=== PATIENT | male | born 1985 | race Caucasian/White ===

== ENCOUNTER → 2017-01-29 | Outpatient (CLI) | payer MEDICAID, OTHER ==
[2017-01-29 11:23] LABS: CH 28.4; CHCM 33.6; HCT 43.8 % (39.0-53.0); HDW 2.73; HGB 14.9 gm/dL (13.0-17.5); MCH 28.8 pg (25.0-35.0); MCV 84.8 fL (80.0-100.0); Mean Platelet Volume 6.6; RBC 5.17 m/uL (4.30-5.90); RDW 12.8 % (11.5-15.5); WBC 5.6 k/uL (3.8-10.6)
[2017-01-29 12:06] LABS: ALT 29 U/L (21-72); AST 29 U/L (17-59); Alkaline Phosphatase 75 U/L (38-126); Anion Gap 8 mmol/L; Blood Urea Nitrogen 11 mg/dL (9-20); Calcium 9.1 mg/dL (8.4-10.2); Carbon Dioxide 27 mmol/L (22-30); Chloride 110 mmol/L (98-107); Glucose 90 mg/dL (74-99); Non-African American GFR(MDRD) >60 (>60 ml/min/1.73 sqM); Potassium 4.6 mmol/L (3.5-5.1); Sodium 145 mmol/L (137-145); Total Bilirubin 0.3 mg/dL (0.2-1.3); Total Protein 7.4 g/dL (6.3-8.2)
[2017-01-29 12:44] LABS: INR 1.1 (<1.2); Partial Thromboplastin Time 44.8 sec (22.0-30.0); Prothrombin Time 11.1 sec (9.0-12.0)
== END | disposition home or self-care (01) ==
LOC: LABWHC1 10:59
PROVIDERS: ATTEND Internal Medicine Hematology & Oncology
DX: D66 Hereditary factor VIII deficiency (principal)
CPT/HCPCS: 36415; 80053; 85027; 85610; 85730

== ENCOUNTER → 2018-01-09 | Outpatient (CLI) | payer MEDICAID, OTHER ==
--- NOTE | 2018-01-09 16:12 | XR ---
EXAMINATION TYPE: XR ankle complete bilateral DATE OF EXAM: 01/09/2018 CLINICAL HISTORY: Bilateral ankle pain TECHNIQUE: Frontal, lateral and oblique images of the bilateral ankles are obtained. COMPARISON: Left ankle MRI November 29, 2010 FINDINGS: There is no acute fracture/dislocation evident in either ankle. The ankle mortise appears within normal limits bilaterally. The overlying soft tissue appears unremarkable in the right ankle . Seen on lateral view there is irregular soft tissue anterior and posterior to the superior talus, thi s correlates with chronic large joint effusion or hematoma on MRI. Cannot exclude some new erosive cy stic changes involving the posterior and medial aspects of talus. This could be further investigated with CT if desired. IMPRESSION: As above.
== END | disposition home or self-care (01) ==
LOC: LABWHC1 14:23
PROVIDERS: ATTEND Internal Medicine Hematology & Oncology
DX: M79.89 Other specified soft tissue disorders (principal); B18.2 Chronic viral hepatitis C; Z71.3 Dietary counseling and surveillance; Z14.01 Asymptomatic hemophilia A carrier
CPT/HCPCS: 36415; 85240; 85335; 85730; 85732

== ENCOUNTER → 2019-09-08 | Outpatient (CLI) | payer MEDICAID, OTHER | END | disposition home or self-care (01) | DX: I87.2 Venous insufficiency (chronic) (peripheral) (principal) | CPT/HCPCS: 93970 ==

== ENCOUNTER 2020-01-09 10:09 | Emergency (ER) | payer MEDICAID, OTHER ==
[2020-01-09 10:14] VITALS: BP 184/99; PULSE 79; RESP 20; TEMP 98
--- NOTE | 2020-01-09 11:32 | XR ---
EXAMINATION TYPE: XR chest 2V DATE OF EXAM: 01/09/2020 COMPARISON: 09/03/2019 HISTORY: Chest pain TECHNIQUE: Frontal and lateral views of the chest are obtained. FINDINGS: There is no focal air space opacity. No evidence for pneumothorax. No pleural effusion. The cardiac silhouette size is within normal limits. The osseous structures are grossly intact. IMPRESSION: 1. No acute cardiopulmonary process.
--- NOTE | 2020-01-09 11:43 | ED ---
URI HPI - General Chief Complaint: Upper Respiratory Infection Stated Complaint: cough/chest pain/TI Time Seen by Provider: 01/09/20 10:15 Source: patient, RN notes reviewed Mode of arrival: ambulatory Limitations: no limitations - History of Present Illness Initial Comments: This a 34-year-old male presents emergency Department with chief when a cough. Patient states that dry hacking cough for the last several days. Patient states it's getting worse. Patient states he cannot stop coughing. Patient states he has no sick contacts. Denies any known fever. Patient states occasionally there is some production to his cough is mild nasal congestion. Patient denies any history of ALLERGY issues. Patient denies any abdominal pain no areas of bl eeding. 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 - Related Data Home Medications Medication Instructions Recorded Confirmed Advate 3,318 units SQ MOWEFR 01/09/20 01/09/20 Previous Rx's Medication Instructions Recorded Azithromycin [Zithromax Z-pack] 0 mg PO DIRECTED #1 pack 01/09/20 Allergies Allergy/AdvReac Type Severity Reaction Status Date / Time No Known Allergies Allergy Verified 01/09/20 10:48 Review of Systems ROS Statement: Those systems with pertinent positive or pertinent negative responses have been documented in the HPI. ROS Other: All systems not noted in ROS Statement are negative. Past Medical History Past Medical History: No Reported History History of Any Multi-Drug Resistant Organisms: None Reported Past Surgical History: No Surgical Hx Reported Past Psychological History: No Psychological Hx Reported Smoking Status: Never smoker Past Alcohol Use History: Occasional Past Drug Use History: None Reported General Exam Limitations: no limitations General appearance: alert, in no apparent distress Head exam: Present: atraumatic, normocephalic, normal inspection Eye exam: Present: normal appearance, PERRL, EOMI. Absent: scleral icterus, conjunctival injection, periorbital swelling ENT exam: Present: normal exam, normal oropharynx, mucous membranes moist, TM's normal bilaterally, normal external ear exam Neck exam: Present: normal inspection, full ROM. Absent: tenderness, meningismus, lymphadenopathy Respiratory exam: Present: wheezes (Minimal). Absent: normal lung sounds bilaterally, respiratory distress, rales, rhonchi, stridor Cardiovascular Exam: Present: regular rate, normal rhythm, normal heart sounds. Absent: systolic murmur, diastolic murmur, rubs, gallop, clicks Course Vital Signs 01/09/20 10:12 Temperature 98 F Pulse Rate 79 Respiratory 20 Rate Blood Pressure 184/99 O2 Sat by Pulse 99 Oximetry Medical Decision Making - Medical Decision Making X-ray does not show any evidence of pneumonia. Covid testing was performed. Patient to for acute bronchitis. Patient will return for any worsening symptoms. Disposition Clinical Impression: Acute bronchitis Disposition: HOME SELF-CARE Condition: Stable Instructions (If sedation given, give patient instructions): Upper Respiratory Infection (ED) Additional Instructions: Please return to the Emergency Department if symptoms worsen or any other concerns. Prescriptions: Azithromycin [Zithromax Z-pack] 0 mg PO DIRECTED #1 pack Is patient prescribed a controlled substance at d/c from ED?: No Referrals: Gadiel Bonner MD [Primary Care Provider] - 1-2 days Time of Disposition: 11:43
== END 2020-01-09 12:00 | disposition home or self-care (01) ==
LOC: EC 10:09
DX: J20.9 Acute bronchitis, unspecified (principal); Z20.828 Contact with and (suspected) exposure to other viral communicable diseases; D66 Hereditary factor VIII deficiency
CPT/HCPCS: 71046; 99283; U0003

== ENCOUNTER → 2020-02-13 | Outpatient (CLI) | payer MEDICAID, OTHER ==
[2020-02-13 12:32] LABS: Basophils % (A) 1 %; Eosinophils # (A) 0.1 k/uL (0-0.7); Eosinophils % (A) 1 %; HCT 46.7 % (39.0-53.0); Lymphocytes # (A) 1.6 k/uL (1.0-4.8); Lymphocytes % (A) 25 %; MCH 27.4 pg (25.0-35.0); MCHC 32.1 g/dL (31.0-37.0); MCV 85.2 fL (80.0-100.0); Mean Platelet Volume 7.1; Monocytes # (A) 0.6 k/uL (0-1.0); Monocytes % (A) 9 %; Neutrophils # (A) 3.9 k/uL (1.3-7.7); Neutrophils % (A) 62 %; Platelet Count 245 k/uL (150-450); RBC 5.48 m/uL (4.30-5.90); RDW 13.6 % (11.5-15.5); WBC 6.4 k/uL (3.8-10.6)
[2020-02-13 17:28] LABS: African American GFR (CKD) 99.6 (60.0-200.0); Albumin 4.3 g/dL (3.80-4.90); Albumin/Globulin Ratio 1.59 (1.60-3.17); Anion Gap 7.8 mmol/L (4.00-12.00); Calcium 9.3 mg/dL (8.7-10.3); Carbon Dioxide 27.2 mmol/L (21.6-31.8); Globulin 2.7 g/dL (1.6-3.3); Non-African American GFR(CKD) 85.9 (60.0-200.0); Total Bilirubin 0.6 mg/dL (0.2-1.2)
== END | disposition home or self-care (01) ==
LOC: LABWHC1 10:26
PROVIDERS: ATTEND Internal Medicine Hematology & Oncology
DX: B18.2 Chronic viral hepatitis C (principal); Z14.01 Asymptomatic hemophilia A carrier; Z71.3 Dietary counseling and surveillance
CPT/HCPCS: 36415; 80053; 85025

== ENCOUNTER → 2020-02-13 | Outpatient (CLI) | payer MEDICAID, OTHER ==
--- NOTE | 2020-02-13 10:27 | XR ---
EXAMINATION TYPE: XR ankle complete LT DATE OF EXAM: 02/13/2020 COMPARISON: 01/09/2018 HISTORY: Pain FINDINGS: Three views of the ankle demonstrate the ankle mortise to be intact and symmetric. The joint spaces are preserved. There is linear lucency involving the talus.. Diffuse soft tissue edema. Benign-appea ring cystic lesion involving the distal fibula. There is abnormal soft tissue attenuation posterior t o the ankle joint which could represent hematoma. Calcaneal spurs are noted. IMPRESSION: 1. There is soft tissue edema. Additionally is abnormal attenuation on the lateral view posterior and anterior to the ankle joint. Questionable lucency through the talus and possible fracture recommend CT scan.
== END | disposition home or self-care (01) ==
LOC: RADXRMAIN 10:11
PROVIDERS: ATTEND Internal Medicine Hematology & Oncology
DX: M79.89 Other specified soft tissue disorders (principal); R60.9 Edema, unspecified; B18.2 Chronic viral hepatitis C; Z14.01 Asymptomatic hemophilia A carrier; Z71.3 Dietary counseling and surveillance

== ENCOUNTER → 2020-03-02 | Outpatient (CLI) | payer MEDICAID, OTHER ==
--- NOTE | 2020-03-02 23:32 | CT ---
EXAMINATION TYPE: CT ankle LT wo con DATE OF EXAM: 03/02/2020 COMPARISON: 02/13/2020 x-ray HISTORY: Abnormal findings CT DLP: To 3.80 mGycm, Automated exposure control for dose reduction was used. CONTRAST: Performed injected with 0 mL of Isovue 370. TECHNIQUE: Axial images were obtained at 2 mm thick sections. Reconstructed images are reviewed on [employer] computer in the coronal and sagittal plane. FINDINGS: No acute fractures evident. Soft tissues appear normal. No swelling or joint effusions are evident. There is a subcortical cyst within the distal medial and lateral malleolus. Corresponding subcortical cysts are also within the talus adjacent. Subchondral cysts within the humeral feel he a is not unc ommon. Ankle mortise is intact. Some diffuse narrowing of the joint space may be present. This may be degene rative in nature. Hemarthrosis however can't promote cartilage thinning. IMPRESSIONS: 1. Medial and lateral malleolar subcortical cysts. Smaller subcortical cysts appear to be present wit hin the talus. 2. No acute fracture evident.
== END | disposition home or self-care (01) ==
LOC: RADCTMAIN 14:56
PROVIDERS: ATTEND Internal Medicine Hematology & Oncology
DX: M85.672 Other cyst of bone, left ankle and foot (principal); M79.662 Pain in left lower leg

== ENCOUNTER → 2020-04-28 | Outpatient (CLI) | payer MEDICAID, OTHER | END | disposition home or self-care (01) | LOC: CPPFTMAIN 07:30 | PROVIDERS: ATTEND Family Medicine | DX: R06.02 Shortness of breath (principal) | CPT/HCPCS: 94060; 94726; 94729 ==

== ENCOUNTER → 2020-08-31 | Outpatient (CLI) | payer MEDICAID, OTHER ==
--- NOTE | 2020-08-31 21:08 | CONS ---
CONSULTATION This patient is 35, currently unemployed. He lost his job during the pandemic. 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 He used to work 4 days a week between 8 a.m. and 6 p.m. He reports that since early adulthood he has had difficulties with sleep. He would not be able to generate sleep in the early evening hours and he would stay up until around 2 or 3 a.m. in the morning. His ideal time to go to bed is around 3 a.m. He feels much better if he sleeps between 3 a.m. and 10 a.m. next day. He may have an underlying delayed sleep phase syndrome based on that. He does have a prolonged sleep latency if he goes to bed earlier. During the night, he wakes up on multiple occasions. He snores and he has been told that he quits breathing. He is unable to maintain good sleep maintenance and he has had the same issue for years. On certain weekends, he is able to sleep a good 10-12 hours without any major difficulties. He has gained weight during the , and currently he is taking Adipex 37.5 mg, which he is taking at noontime or in the afternoon. He is a nonsmoker. No history of any substance abuse. No history of alcoholism. No history of head trauma. 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 No issues with pain. No issues with heartburn or chest pain or shortness of breath. No history of an underlying psychiatric disorder. No recent cardiovascular complications, sinus congestion, heart failure, atrial fibrillation or hypertension. PAST MEDICAL HISTORY: Obesity and hemophilia. PAST SURGICAL HISTORY: Resection of a benign cyst. DRUG ALLERGIES: NOT KNOWN. 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 SOCIAL HISTORY: The patient is a nonsmoker. No history of alcoholism. No history of IV drugs. FAMILY HISTORY: Negative for sleep apnea. REVIEW OF SYSTEMS: Fourteen-point review of systems was done. Positive findings are all mentioned above in the history of present illness. PHYSICAL EXAMINATION: VITAL SIGNS: BP is 120/57, pulse 97, respirations 20, temperature 98.6, saturation 95% on room air. BMI 35.7. [place] score is 7. Neck size is 18. GENERAL APPEARANCE: Calm, comfortable. HEAD: Atraumatic, normocephalic. NECK: Supple. Mallampati class IV. There is no goiter or neck masses. LUNGS: Clear to auscultation. HEART: Heart sounds are regular rate and rhythm. Normal S1, S2. No S3, S4. No murmurs. ABDOMEN: Soft, nontender. No organomegaly. EXTREMITIES: No edema. No cyanosis or clubbing. NEUROLOGIC: Awake and alert. There is no focal neurological deficit. IMPRESSION: 1. Delayed sleep phase syndrome. 2. Sleep maintenance insomnia. Rule out underlying obstructive sleep apnea. 3. Obesity with interval weight loss with the use of Adipex. BMI 35.7. 4. Hemophilia type A. PLAN: 1. Encourage further weight loss. 2. Take Adipex in the morning hours. This medication can potentially act as a stimulant disrupt sleep quality in the evening. 3. Discussed interventions to gradually improve the sleep schedule in this patient, knowing that he has a delayed sleep phase syndrome. The patient was not interested in that and he wanted to keep the same sleep schedule. 4. Will do a home sleep study, knowing that the patient is unable to generate sleep at the sleep center, especially with his delayed sleep phase syndrome. A home sleep study that can be conducted at home should rule out essentially the possibility of obstructive sleep apnea. 5. Will get back to the patient with the results of the sleep study and decide if further treatment is needed. 6. Issues related to sleep hygiene were discussed. 7. Will continue to follow. MCKENZIE / ROSIN: [id number] / LUBNA
== END ==
LOC: SLEEP 13:59
PROVIDERS: ATTEND Internal Medicine Critical Care Medicine
DX: G47.21 Circadian rhythm sleep disorder, delayed sleep phase type (principal); G47.00 Insomnia, unspecified; E66.9 Obesity, unspecified; Z68.35 Body mass index [BMI] 35.0-35.9, adult; D66 Hereditary factor VIII deficiency
CPT/HCPCS: 99211

== ENCOUNTER → 2022-03-31 | Outpatient (CLI) | payer OTHER ==
--- NOTE | 2022-03-31 12:16 | MR ---
EXAMINATION TYPE: MR shoulder RT wo con DATE OF EXAM: 03/31/2022 COMPARISON: HISTORY: Rt shoulder pain TECHNIQUE: Multiplanar, multisequence imaging of the right shoulder is performed without contrast. FINDINGS: There is increased intrasubstance signal involving the distal margin of the supraspinatus tendon stat ing a length of 1.6 cm in transverse and 1.5 cm compatible with tendinosis and partial intrasubstance tearing. Bursal scuffing suspected. There is impingement of the tendon and muscle secondary to advan nia AC joint arthropathy. No definite through this tear or retraction. Mild increased signal along the undersurface of the infraspinatus tendon compatible with partial tear but no evidence of thickness tear or retraction. Both the distal 1 cm insertion of the tendon. Subscapularis tendon appears intact. There is increased signal within the biceps tendon within the rotator interval compatible with tendin osis. Bicipital tendon remains well situated in the bicipital groove. Glenohumeral ligaments are intact. Bony labrum are grossly intact. No sizable joint effusion. Suprasc apular notch is within normal limits. IMPRESSION: 1. Impingement secondary to advanced AC joint arthropathy resulting in tendinosis of the distal tani ns of the infraspinatus and supraspinatus tendons. Bursal surface fraying of the distal 1.6 cm of the supraspinatus tendon with a partial intrasubstance tear but no acute thickness tear or retraction. 2. Bicipital tendinosis.
== END | disposition home or self-care (01) ==
LOC: RADMRIMAIN 03-22 15:36
PROVIDERS: ATTEND Family Medicine
DX: S46.001D Unspecified injury of muscle(s) and tendon(s) of the rotator cuff of right shoulder, subsequent encounter (principal); X58.XXXD Exposure to other specified factors, subsequent encounter

== ENCOUNTER → 2023-04-11 | Outpatient (CLI) | payer OTHER ==
[2023-04-11 19:10] LABS: Partial Thromboplastin Time 51.8 sec (22.0-30.0); Prothrombin Time 10.6 sec (10.0-12.5)
[2023-04-11 20:43] LABS: Basophils # (A) 0.04 X 10*3/uL (0.00-0.10); Basophils % (A) 0.6 %; Eosinophils # (A) 0.12 X 10*3/uL (0.04-0.35); Eosinophils % (A) 1.7 %; HCT 46.1 % (39.6-50.0); HGB 15.3 d/dL (13.0-17.0); Lymphocytes # (A) 1.91 X 10*3/uL (0.90-5.00); Lymphocytes % (A) 27.1 %; MCHC 33.2 d/dL (32.0-37.0); MCV 84.3 FL (80.0-97.0); Mean Platelet Volume 10.5 FL (9.5-12.2); Monocytes # (A) 0.77 X 10*3/uL (0.20-1.00); Monocytes % (A) 10.9 %; NRBC Per 100 WBC 0 X 10*3/uL (0.00-0.01); Neutrophils # (A) 4.15 X 10*3/uL (1.80-7.70); Neutrophils % (A) 58.8 %; Platelet Count 296 X 10*3/uL (140-440); RBC 5.47 X 10*6/uL (4.40-5.60); RDW 13.2 % (11.5-14.5); WBC 7.05 X 10*3/uL (4.50-10.00)
== END | disposition home or self-care (01) ==
LOC: LABWHC1 15:56
PROVIDERS: ATTEND Internal Medicine Hematology & Oncology
DX: Z14.01 Asymptomatic hemophilia A carrier (principal); B18.2 Chronic viral hepatitis C; Z71.3 Dietary counseling and surveillance
CPT/HCPCS: 36415; 85025; 85610; 85730